=== PATIENT | female | born 1995 | race African-American/Black ===

== ENCOUNTER 2017-04-04 12:22 | Emergency (ER) | payer MEDICAID, SELFPAY | END 2017-04-04 13:13 | disposition home or self-care (01) | DX: H66.003 Acute suppurative otitis media without spontaneous rupture of ear drum, bilateral (principal); Z91.040 Latex allergy status; J45.909 Unspecified asthma, uncomplicated; F17.210 Nicotine dependence, cigarettes, uncomplicated; Z88.2 Allergy status to sulfonamides; Z88.6 Allergy status to analgesic agent | CPT/HCPCS: 87880 ==

== ENCOUNTER 2017-04-22 12:00 | Emergency (ER) | payer MEDICAID, SELFPAY ==
[2017-04-22 12:08] VITALS: BP 154/88; PULSE 89; RESP 22; TEMP 36.8; O2SAT 100; BMI 43.8
--- NOTE | 2017-04-22 12:20 | HMH.EDHA ---
ED Disposition Clinical Impression: Ocular migraine Nearsightedness Qualifiers: Laterality: bilateral Qualified Code(s): H52.13 - Myopia, bilateral Astigmatism of both eyes Qualifiers: Astigmatism type: irregular Qualified Code(s): H52.213 - Irregular astigmatism, bilateral Macular degeneration Qualifiers: Macular degeneration type: unspecified type Eye laterality: unspecified Qualified Code(s): H35.30 - Unspecified macular degeneration Chronic headaches Qualifiers: Headache type: unspecified Intractability: intractable Qualified Code(s): R51 - Headache Disposition: Home, Self-Care Condition on Discharge: Good Instructions: DI for Headache Additional Instructions: Follow-up with Dr. Ciara Kolb at [facility] tomorrow at 10:00a,. If headache is not improved by tomorrow, please return to the Emergency Room after seeing the re etcher. Time of Disposition: 15:02 - Critical Care Critical Care Time: No Attestation: On , the high probability of a clinically significant, sudden or life threatening deterioration of the following system(s) required my full and direct attention, intervention and personal management. The time I documented below is in addition to time spent performing reported procedures but includes the following listed in this critical care notation. Medical Decision Making - Medical Records Medical records reviewed: Yes: I reviewed the patient's medical records. Vital Signs: 04/22/17 12:08 04/22/17 15:20 Temperature 98.2 F 98.6 F Temperature Source Oral Oral Pulse Rate 85 Pulse Rate [Right Brachial] 89 Respiratory Rate 22 14 Blood Pressure 112/78 Blood Pressure [Right Arm] 154/88 Blood Pressure Mean [Right Arm] 110 Blood Pressure Source Automatic Cuff Blood Pressure Source [Right Arm] Automatic Cuff Blood Pressure Position Sitting Blood Pressure Position [Right Arm] Sitting 02 Sat by Pulse Oximetry 100 Oxygen Delivery Method Room Air Room Air - Lab Data Lab results reviewed: Yes: I reviewed the patient's lab results. Orders (Tests/Meds): ED MEDICATIONS Discontinued Medications Generic Name Dose Route Start Last Admin Trade Name Freq PRN Reason Stop Dose Admin Hydromorphone HCl 1 mg 04/22/17 12:20 04/22/17 14:01 Dilaudid 2mg/Ml Syringe IM 04/22/17 12:21 1 mg ONCE ONE Administration Ondansetron HCl 4 mg 04/22/17 12:20 04/22/17 14:01 Zofran 4mg/2ml Vial IM 04/22/17 12:21 4 mg ONCE ONE Administration - CT Data CT Scan: Head Time Received: 14:[address] Reviewed: Yes: I have reviewed the patient's CT results Preliminary Findings: Normal/NAD - Guy Inquiry Pt receiving controlled substance: No - Reevaluation(s) Time: 14:45 Reevaluation #1: Case d/w dr Kolb at [facility], and advised of patient's presentation and findings. willing to see the patient today, but the patient is REFUSING to go to the specialist appointment stating that her has to go to work this afternoon. Dr Kolb agreeable to see the patient tomorrow am,de appointment. Advised the patient that I was unable to check her intraocular pressure as we do not have a functional thermometer in this department, and she will need to be evaluated for glaucoma as soon as possible. Unfortunately, again, the patient refused this opportunity to be seen right away by the interactive media marketing specialist. Headache HPI - General Chief Complaint: Headache Stated Complaint: h/a Time Seen by Provider: 04/22/17 12:10 Mode of Arrival: Ambulatory Limitations: No Limitations Description of Symptoms (Recalled from ER Triage Doc. by RN): HEADACHE FOR FOUR DAYS, STARTED A DULL POUNDING AND HAS SPREAD FROM HEAD TO NECK AND EYEBALL. STATES OF LAST NIGHT, HER LEFT EYE IS HAVING TROUBLE FOCUSING AND BLURRY VISION. DENIES FEVER. STATES SHE HAS TAKEN IBUPROFEN 3-4 TIMES A DAY SINCE THE HEADACHE ONSET WITH NO RELIEF. - History of Present Illness HPI Na
--- NOTE | 2017-04-22 12:23 | ED_ITS ---
ED Disposition Clinical Impression: Ocular migraine Nearsightedness Qualifiers: Laterality: bilateral Qualified Code(s): H52.13 - Myopia, bilateral Astigmatism of both eyes Qualifiers: Astigmatism type: irregular Qualified Code(s): H52.213 - Irregular astigmatism , bilateral Macular degeneration Qualifiers: Macular degeneration type: unspecified type Eye laterality: unspecified Qualified Code(s): H35.30 - Unspecified macular degeneration Chronic headaches Qualifiers: Headache type: unspecified Intractability: intractable Qualified Code(s): R51 - Headache Disposition: Home, Self-Care Condition on Discharge: Good Instructions: DI for Headache Additional Instructions: Follow-up with Dr. Ciara Kolb at [facility] tomorrow at 10:00a, . If headache is not improved by tomorrow, please return to the Emergency Room after seeing the timber framer helper. Time of Disposition: 15:02 - Critical Care Critical Care Time: No Attestation: On , the high probability of a clinically significant, sudden or life threatening deterioration of the following system(s) required my full and direct attention, intervention and personal management. The time I documented below is in addition to time spent performing reported procedures but includes the following listed in this critical care notation. Medical Decision Making - Medical Records Medical records reviewed: Yes: I reviewed the patient's medical records. Vital Signs: 04/22/17 12:08 04/22/17 15:20 Temperature 98.2 F 98.6 F Temperature Source Oral Oral Pulse Rate 85 Pulse Rate [Right Brachial] 89 Respiratory Rate 22 14 Blood Pressure 112/78 Blood Pressure [Right Arm] 154/88 Blood Pressure Mean [Right Arm] 110 Blood Pressure Source Automatic Cuff Blood Pressure Source [Right Arm] Automatic Cuff Blood Pressure Position Sitting Blood Pressure Position [Right Arm] Sitting 02 Sat by Pulse Oximetry 100 Oxygen Delivery Method Room Air Room Air - Lab Data Lab results reviewed: Yes: I reviewed the patient's lab results. Orders (Tests/Meds): ED MEDICATIONS Discontinued Medications Generic Name Dose Route Start Last Admin Trade Name Freq PRN Reason Stop Dose Admin Hydromorphone HCl 1 mg 04/22/17 12:20 04/22/17 14:01 Dilaudid 2mg/Ml Syringe IM 04/22/17 12:21 1 mg ONCE ONE Administration Ondansetron HCl 4 mg 04/22/17 12:20 04/22/17 14:01 Zofran 4mg/2ml Vial IM 04/22/17 12:21 4 mg ONCE ONE Administration - CT Data CT Scan: Head Time Received: 14:[address] Reviewed: Yes: I have reviewed the patient's CT results Preliminary Findings: Normal/NAD - Guy Inquiry Pt receiving controlled substance: No - Reevaluation(s) Time: 14:45 Reevaluation #1: Case d/w dr Kolb at [facility], and advised of patient's presentation and findings. willing to see the patient today, but the patient is REFUSING to go to the specialist appointment stating that her has to go to work this afternoon. Dr Kolb agreeable to see the patient tomorrow am,de appointment. Advised the patient that I was unable to check her intraocular pressure as we do not have a functional thermometer in this department, and she will need to be evaluated for glaucoma as soon as possible. Unfortunately, again, the
--- NOTE | 2017-04-22 12:49 | CT_ITS ---
CT head/brain wo con HISTORY: ITS.REASON: worst headache ever, left eye blurred vision ORDERING PHYSICIAN: Tank Guerrero MD PATIENT AGE: 21 years COMPARISON: None TECHNIQUE: Axial images obtained without contrast. Brain and bone windows reviewed. FINDINGS: No midline shift, mass effect, intracranial hemorrhage, hydrocephalus, or extra-axial fluid collection is evident. The calvarium has an unremarkable appearance. No mastoid effusion. No sinus air-fluid levels.. There is prominent adenoid hypertrophy IMPRESSION: 1. No acute intracranial finding. 2. Enlarged adenoids
[2017-04-22 15:20] VITALS: BP 112/78; PULSE 85; RESP 14; TEMP 37; O2SAT 98
== END 2017-04-22 15:24 | disposition home or self-care (01) ==
PROVIDERS: Emergency Provider Emergency Medicine
DX: G43.B0 Ophthalmoplegic migraine, not intractable (principal); H52.13 Myopia, bilateral; H52.203 Unspecified astigmatism, bilateral; H35.30 Unspecified macular degeneration; F17.210 Nicotine dependence, cigarettes, uncomplicated
CPT/HCPCS: 70450; 96372; 99282; J2405

== ENCOUNTER 2017-04-23 10:52 | Emergency (ER) | payer MEDICAID, SELFPAY ==
[2017-04-23 11:00] VITALS: BP 145/93; PULSE 86; RESP 18; TEMP 36.9; O2SAT 98; BMI 43.8
--- NOTE | 2017-04-23 11:22 | PC.NURSE ---
VISUAL ACUITY WAS ASSESSED AND PT'S VISION IN EITHER EYE WAS 20/70 WITH CORRECTIVE LENSES ON. PT ADVISES THAT SHE HAS HAD VISION PROBLEMS SINCE SHE WAS 3 YEARS OLD AND HAS ALWAYS TESTED 20/70.
--- NOTE | 2017-04-23 12:01 | HMH.EDHA ---
ED Disposition Clinical Impression: Migraine, Ocular migraine Disposition: Home, Self-Care Condition on Discharge: Good Instructions: Migraine -- Adult Additional Instructions: See your eye doctor and family doctor for follow up next week; see list of local family MD's if you do not have a current one. Recommend Tylenol over the counter, avoid Ibuprofen if sensitive to it. continue to push fluids. - Critical Care Critical Care Time: No Attestation: On 04/23/17, the high probability of a clinically significant, sudden or life threatening deterioration of the following system(s) required my full and direct attention, intervention and personal management. The time I documented below is in addition to time spent performing reported procedures but includes the following listed in this critical care notation. Medical Decision Making - Medical Records Medical records reviewed: Yes: I reviewed the patient's medical records. Vital Signs: 04/23/17 11:00 Temperature 98.5 F Temperature Source Oral Pulse Rate [Left Brachial] 86 Respiratory Rate 18 Blood Pressure [Left Arm] 145/93 Blood Pressure Mean [Left Arm] 110 Blood Pressure Source [Left Arm] Automatic Cuff Blood Pressure Position [Left Arm] Sitting 02 Sat by Pulse Oximetry 98 Oxygen Delivery Method Room Air Orders (Tests/Meds): ED MEDICATIONS Discontinued Medications Generic Name Dose Route Start Last Admin Trade Name Freq PRN Reason Stop Dose Admin Diphenhydramine HCl 25 mg 04/23/17 12:40 04/23/17 12:43 Benadryl 25mg Capsule PO 04/23/17 12:41 25 mg ONCE ONE Administration Methylprednisolone Sodium Succinate 125 mg 04/23/17 11:38 04/23/17 12:18 Solu-Medrol 125mg/2ml Vial IM 04/23/17 11:39 125 mg ONCE ONE Administration Promethazine HCl 25 mg 04/23/17 12:40 04/23/17 12:43 Phenergan 25mg Tablet PO 04/23/17 12:41 25 mg ONCE ONE Administration - Guy Inquiry Pt receiving controlled substance: No Medical Decision Making Narrative: Improved with Solumedrol, but having GI upset; Phenergan and Benadryl PO. 1300: feeling fine; ready for d/c; stable; eating donut and drinking pop. Headache HPI - General Chief Complaint: Headache Stated Complaint: headache Time Seen by Provider: 04/23/17 11:40 Mode of Arrival: Ambulatory Limitations: No Limitations Description of Symptoms (Recalled from ER Triage Doc. by RN): pt c/o fernandez that has worsened since yesterday after being seen in ED for lt eye pain that caused the fernandez - History of Present Illness HPI Narrative: Patient was seen in the emergency department yesterday for left-sided headache. Had some vision changes. The scan was negative, and she was referred to eye doctor, who examined her and stated that she had macular degeneration. 6 that she has had migraine headaches since she was 5 years old. Significant similar headaches to this 1 today, and seen by Dr. Brian in the past for them last year. Has photophobia and nausea. Still has photophobia. No vomiting. No rash. No neck stiffness. No joint pain. Fever. History of PMS migraine and she just started her menses today. History of Crohn's disease, stable she states I took ibuprofen yesterday for my headache, but I am allergic to ibuprofen as it gives me a headache . - Related Data Home Medications Medication Instructions Recorded Confirmed No Known Home Medications [No 04/22/17 04/22/17 Known Home Medications] Allergies Allergy/AdvReac Type Severity Reaction Status Date / Time acetaminophen [ACETAMINOPHEN] Allergy Unknown Verified 04/22/17 12:23 codeine [CODEINE] Allergy Unknown Verified 04/22/17 12:23 latex [LATEX] Allergy Unknown Verified 04/22/17 12:23 NSAIDS (Non-Steroidal Allergy Unknown Verified 04/22/17 12:23 Anti-Inflamma [NSAIDS (NON-STEROIDAL ANTI-INFLAMMA] Sulfa (Sulfonamide Allergy Unknown Verified 04/22/17 12:23 Antibiotics) [SULFA (SULFONAMIDE
--- NOTE | 2017-04-23 12:04 | ED_ITS ---
ED Disposition Clinical Impression: Migraine, Ocular migraine Disposition: Home, Self-Care Condition on Discharge: Good Instructions: Migraine -- Adult Additional Instructions: See your eye doctor and family doctor for follow up next week; see list of local family MD's if you do not have a current one. Recommend Tylenol over the counter, avoid Ibuprofen if sensitive to it. continue to push fluids. - Critical Care Critical Care Time: No Attestation: On 04/23/17, the high probability of a clinically significant, sudden or life threatening deterioration of the following system(s) required my full and direct attention, intervention and personal management. The time I documented below is in addition to time spent performing reported procedures but includes the following listed in this critical care notation. Medical Decision Making - Medical Records Medical records reviewed: Yes: I reviewed the patient's medical records. Vital Signs: 04/23/17 11:00 Temperature 98.5 F Temperature Source Oral Pulse Rate [Left Brachial] 86 Respiratory Rate 18 Blood Pressure [Left Arm] 145/93 Blood Pressure Mean [Left Arm] 110 Blood Pressure Source [Left Arm] Automatic Cuff Blood Pressure Position [Left Arm] Sitting 02 Sat by Pulse Oximetry 98 Oxygen Delivery Method Room Air Orders (Tests/Meds): ED MEDICATIONS Discontinued Medications Generic Name Dose Route Start Last Admin Trade Name Freq PRN Reason Stop Dose Admin Diphenhydramine HCl 25 mg 04/23/17 12:40 04/23/17 12:43 Benadryl 25mg Capsule PO 04/23/17 12:41 25 mg ONCE ONE Administration Methylprednisolone Sodium Succinate 125 mg 04/23/17 11:38 04/23/17 12:18 Solu-Medrol 125mg/2ml Vial IM 04/23/17 11:39 125 mg ONCE ONE Administration Promethazine HCl 25 mg 04/23/17 12:40 04/23/17 12:43 Phenergan 25mg Tablet PO 04/23/17 12:41 25 mg ONCE ONE Administration - Guy Inquiry Pt receiving controlled substance: No Medical Decision Making Narrative: Improved with Solumedrol, but having GI upset; Phenergan and Benadryl PO. 1300: feeling fine; ready for d/c; stable; eating donut and drinking pop. Headache HPI - General Chief Complaint: Headache Stated Complaint: headache Time Seen by Provider: 04/23/17 11:40 Mode of Arrival: Ambulatory Limitations: No Limitations Description of Symptoms (Recalled from ER Triage Doc. by RN): pt c/o fernandez that has worsened since yesterday after being seen in ED for lt eye pain that caused the fernandez - History of Present Illness HPI Narrative: Patient was seen in the emergency department yesterday for left-sided headache. Had some vision changes. The scan was negative, and she was referred to eye doctor, who examined her and stated that she had macular degeneration. 6 that she has had migraine headaches since she was 5 years old. Significant similar headaches to this 1 today, and seen by Dr. Brian in the past for them last year. Has photophobia and nausea. Still has photophobia. No vomiting. No rash. No neck stiffness. No joint pain. Fever. History of PMS migraine and she just started her menses today. History of Crohn's disease, stable she states I took ibuprofen yesterday for my headache, but I am allergic to ibuprofen as it gives me a headache . - Related Data Home Medications Medication I
[2017-04-23 13:15] VITALS: BP 134/81; PULSE 78; RESP 20; TEMP 36.9; O2SAT 100
== END 2017-04-23 13:15 | disposition home or self-care (01) ==
PROVIDERS: Emergency Provider Emergency Medicine
DX: G43.B0 Ophthalmoplegic migraine, not intractable (principal); Z88.6 Allergy status to analgesic agent; Z88.5 Allergy status to narcotic agent; Z88.2 Allergy status to sulfonamides
CPT/HCPCS: 96372; 99281; 99282

== ENCOUNTER 2017-04-25 12:33 | Emergency (ER) | payer MEDICAID, SELFPAY ==
[2017-04-25 12:50] VITALS: BP 154/86; PULSE 95; RESP 18; TEMP 36.8; O2SAT 99; BMI 43.8
--- NOTE | 2017-04-25 13:15 | HMH.EDGENADL ---
ED Disposition Clinical Impression: Sinus headache, Cervical lymphadenopathy Disposition: Home, Self-Care Condition on Discharge: Fair Additional Instructions: ---IMPRESSION The paranasal sinuses are well-developed and clear. No sinusitis evident. No facial bone fracture or findings. Very prominent adenoidal hypertrophy for age,; along with numerous prominent nodes throughout the neck. These findings require follow-up. May reflect reflect prominent reactive nodes but but warrants close follow-up to exclude developing lymphoproliferative abnormality I I discussed the above CT findings with the patient and advised her to follow-up with Dr. Hardwick for biopsies. He verbalized understanding. She is to continue her abx. Referrals: Drake Whitehead MD [Primary Care Provider] - Jhonatan Hardwick MD [Physician] - - Critical Care Critical Care Time: No Attestation: On 04/25/17, the high probability of a clinically significant, sudden or life threatening deterioration of the following system(s) required my full and direct attention, intervention and personal management. The time I documented below is in addition to time spent performing reported procedures but includes the following listed in this critical care notation. Medical Decision Making Vital Signs: 04/25/17 12:50 Temperature 98.3 F Temperature Source Oral Pulse Rate [Right Brachial] 95 H Respiratory Rate 18 Blood Pressure [Right Arm] 154/86 Blood Pressure Mean [Right Arm] 108 Blood Pressure Source [Right Arm] Automatic Cuff Blood Pressure Position [Right Arm] Sitting 02 Sat by Pulse Oximetry 99 Oxygen Delivery Method Room Air - Lab Data Lab Results 04/25/17 13:55: WBC 12.8 H, RBC 5.26, Hgb 11.0 L, Hct 37.3, MCV 70.8 L, MCH 21.0 L, MCHC 29.6 L, RDW 17.4, Plt Count 375, MPV 7.3 L, Neut % (Auto) 53.0, Lymph % (Auto) 40.6, Bertie % (Auto) 4.6, Eos % (Auto) 1.3, Baso % (Auto) 0.5, Neut # (Auto) 6.8, Lymph # (Auto) 5.2 H, Bertie # (Auto) 0.6, Eos # (Auto) 0.2, Baso # (Auto) 0.1 04/25/17 13:55: Sodium 139, Potassium 3.8, Chloride 103, Carbon Dioxide 29, Anion Gap 10.8, BUN 15, Creatinine 0.78, Estimated Creat Clear 110, Estimated GFR 92, Est GFR ( Amer) 112, Glucose 90, Calcium 8.7, Total Bilirubin 0.3, AST 12 L, ALT 17, Alkaline Phosphatase 87, Total Protein 8.0, Albumin 3.5, Globulin 4.5 H, Albumin/Globulin Ratio 0.8 L Result diagrams: 04/25/17 13:55 04/25/17 13:55 - CT Data ED CT Reviewed: Yes: I have reviewed the patient's CT results, I have viewed the radiologist's interpretation - Guy Inquiry Pt receiving controlled substance: No Guy was queried for this patient: No Medical Decision Making Narrative: ---IMPRESSION The paranasal sinuses are well-developed and clear. No sinusitis evident. No facial bone fracture or findings. Very prominent adenoidal hypertrophy for age,; along with numerous prominent nodes throughout the neck. These findings require follow-up. May reflect reflect prominent reactive nodes but but warrants close follow-up to exclude developing lymphoproliferative abnormality I discussed above CT findings with the patient's, General Adult HPI - General Stated complaint: 3rd visit jaw locks - History of Present Illness HPI narrative: This is 21 years old -N[place]alese female with a history of chronic migraines since the age of 5, her normal migraine usually starts on the left shinto associated with photophobia and vomiting. For the past week she has experienced the left facial pain radiating to the left ear and down her neck. The pain radiates to the left paraspinal region. She reports that the pain is worse with the change in barometric pressure and the change of her position from laying down to sitting upright or standing. The left facial pain as sharp in character intermittent throbbing. she has a baseline photophobia that has not changed. She denies having neck sti
--- NOTE | 2017-04-25 13:18 | ED_ITS ---
ED Disposition Clinical Impression: Sinus headache, Cervical lymphadenopathy Disposition: Home, Self-Care Condition on Discharge: Fair Additional Instructions: ---IMPRESSION The paranasal sinuses are well-developed and clear. No sinusitis evident. No facial bone fracture or findings. Very prominent adenoidal hypertrophy for age,; along with numerous prominent nodes throughout the neck. These findings require follow-up. May reflect reflect prominent reactive nodes but but warrants close follow-up to exclude developing lymphoproliferative abnormality I I discussed the above CT findings with the patient and advised her to follow- up with Dr. Hardwick for biopsies. He verbalized understanding. She is to continue her abx. Referrals: Drake Whitehead MD [Primary Care Provider] - Jhonatan Hardwick MD [Physician] - - Critical Care Critical Care Time: No Attestation: On 04/25/17, the high probability of a clinically significant, sudden or life threatening deterioration of the following system(s) required my full and direct attention, intervention and personal management. The time I documented below is in addition to time spent performing reported procedures but includes the following listed in this critical care notation. Medical Decision Making Vital Signs: 04/25/17 12:50 Temperature 98.3 F Temperature Source Oral Pulse Rate [Right Brachial] 95 H Respiratory Rate 18 Blood Pressure [Right Arm] 154/86 Blood Pressure Mean [Right Arm] 108 Blood Pressure Source [Right Arm] Automatic Cuff Blood Pressure Position [Right Arm] Sitting 02 Sat by Pulse Oximetry 99 Oxygen Delivery Method Room Air - Lab Data Lab Results 04/25/17 13:55: WBC 12.8 H, RBC 5.26, Hgb 11.0 L, Hct 37.3, MCV 70.8 L, MCH 21.0 L, MCHC 29.6 L, RDW 17.4, Plt Count 375, MPV 7.3 L, Neut % (Auto) 53.0, Lymph % (Auto) 40.6, [place] % (Auto) 4.6, Eos % (Auto) 1.3, Baso % (Auto) 0.5, Neut # (Auto) 6.8, Lymph # (Auto) 5.2 H, [place] # (Auto) 0.6, Eos # (Auto) 0.2, Baso # (Auto) 0.1 04/25/17 13:55: Sodium 139, Potassium 3.8, Chloride 103, Carbon Dioxide 29, Anion Gap 10.8, BUN 15, Creatinine 0.78, Estimated Creat Clear 110, Estimated GFR 92, Est GFR ( Amer) 112, Glucose 90, Calcium 8.7, Total Bilirubin 0.3 , AST 12 L, ALT 17, Alkaline Phosphatase 87, Total Protein 8.0, Albumin 3.5, Globulin 4.5 H, Albumin/Globulin Ratio 0.8 L Result diagrams: 04/25/17 13:55 04/25/17 13:55 - CT Data ED CT Reviewed: Yes: I have reviewed the patient's CT results, I have viewed the radiologist's interpretation - Guy Inquiry Pt receiving controlled substance: No Guy was queried for this patient: No Medical Decision Making Narrative: ---IMPRESSION The paranasal sinuses are well-developed and clear. No sinusitis evident. No facial bone fracture or findings. Very prominent adenoidal hypertrophy for age,; along with numerous prominent nodes throughout the neck. These findings require follow-up. May reflect reflect prominent reactive nodes but but warrants close follow-up to exclude developing lymphoproliferative abnormality I discussed above CT findings with the patient's, General Adult HPI - General Stated complaint: 3rd visit jaw locks - History of Present Illness HPI narrative: This is 21 years old -[place] female with a history of chronic migraines since the age of 5, her normal migraine usually st
--- NOTE | 2017-04-25 13:23 | CT_ITS ---
CT facial bones wo con Ordering Physician: Kulwinder Sams Patient Age: 21 years: Female HISTORY: ITS.REASON: left sided hedache TECHNIQUE: Helical CT scanning performed the facial bones with axial coronal and sagittal reconstructions on CT workstation. COMPARISON :No previous facial bone studies but there is a CT head from 04/22/2017 FINDINGS The maxillary sinuses. Well-developed. Clear with no significant mucosal thickening. The ostiomeatal complex and outflow pathways are patent bilaterally. Ethmoid sinuses. Well-developed and clear. Sphenoid sinus. Clear unremarkable.. Only small hypoplastic frontal sinuses barely evident. Clear. Orbits unremarkable no retrobulbar pathology. . Mild/moderate engorgement right nasal turbinates more so than left. -- Large prominent adenoidal tissue. Prominent adenoidal hypertrophy.. Unusually prominent even for a younger 21-year-old patient. Although more typical younger patients this can walk eustachian tubes and yield additional symptoms. Some advocate trial antibiotics in this setting The middle ear remains well aerated and clear-unremarkable. Mastoid air cells IACs external canal unremarkable There are numerous moderately enlarged nodes throughout neck bilaterally particularly evident at the right jugulodigastric region more so than left on this CT facial bones study.. One of the larger malik complexes here at right jugulodigastric region, likely reflects confluence of nodes & spans 2.8 cm in length x 1.2 cm transverse. Enlarged just anterior to this measuring 2.5 x 13 mm & seen on coronal image 43 as well the Moderate enlarged nodes overlying right and left submandibular glands bilaterally.: Note 17 x 8 mm node overlying left submandibular gland. With 13 x 10 mm overlying right submandibular gland ankle mandible on right. 'It also mildly enlarged submental nodes noted. Largest measuring 13 mm x 9 mm.. . More inferiorly below the hyoid, at the left anterior cervical chain is a elongated 2.6 cm x 12 mm wide node seen on coronal image 50, 49. Consider ENT follow-up.. Also suggested evaluating axilla & groin for evidence of enlarged nodes elsewhere. The spleen appeared normal size on February 2017 CT a chest tube which included upper abdomen. No significant mediastinal nor hilar nor adenopathy on that prior CT chest. A postcontrast CT neck at some point may be of benefit to further evaluate the prominent nodes throughout the neck as well if they should persist or progress. ---IMPRESSION The paranasal sinuses are well-developed and clear. No sinusitis evident. No facial bone fracture or findings. Very prominent adenoidal hypertrophy for age,; along with numerous prominent nodes throughout the neck. These findings require follow-up. May reflect reflect prominent reactive nodes but but warrants close follow-up to exclude developing lymphoproliferative abnormality .
--- NOTE | 2017-04-25 13:23 | CT_ITS ---
CT head/brain wo con Ordering Physician: Kulwinder Sams Patient Age: 21 years: Female HISTORY: ITS.REASON: left sided hedache TECHNIQUE: Standard axial CT scanning head. Brain and bone windows performed and reviewed. COMPARISON is made to CT head 04/22/2017 FINDINGS No acute intracranial findings. No hemorrhage. No mass. No subdural collection. The ventricles and basal cisterns appear within normal limits and stable. Posterior fossa unremarkable. No extra-axial collection. A bone windows demonstrate the skull to be intact. Dural calcifications at convexity again noted. The visualized portions of the paranasal sinuses are clear on this study. Mastoid air cells, middle ear and IACs unremarkable. The prominent adenoidal hypertrophy again noted IMPRESSION: No acute intracranial findings. Brain within normal limits No change since CT head, 04/22/2017.
[2017-04-25 14:06] LABS: Basophils # 0.1 K/mm3 (0-0.2); Basophils % 0.5 % (0.1-2.0); Eosinophils # 0.2 K/mm3 (0.0-0.4); Eosinophils % 1.3 % (0.1-12.0); Hematocrit 37.3 % (37.0-47.0); Lymphocytes # 5.2 K/mm3 (0.7-4.5); Lymphocytes % 40.6 K/mm3 (10-50); Mean Corpuscular HGB Conc 29.6 g/dL (31.8-35.4); Mean Corpuscular Volume 70.8 fl (81-99); Mean Platelet Volume 7.3 fl (7.4-10.4); Monocytes # 0.6 K/mm3 (0.1-1.0); Monocytes % 4.6 % (1.7-9.3); Neutrophils # 6.8 K/mm3 (1.8-7.8); Platelet Count 375 K/mm3 (142-424); Red Blood Count 5.26 M/mm3 (4.20-5.40); Red Cell Distribution Width 17.4 % (11.5-17.5); White Blood Count 12.8 K/mm3 (4.8-10.8)
[2017-04-25 14:22] LABS: Alanine Aminotransferase 17 U/L (12-78); Albumin Level 3.5 gm/dL (3.4-5.0); Albumin/Globulin Ratio 0.8 (1.1-1.8); Alkaline Phosphatase 87 U/L (46-116); Anion Gap 10.8 mEq/L (5-15); Aspartate Amino Transferase 12 U/L (15-37); Bilirubin,Total 0.3 mg/dL (0.2-1.0); Blood Urea Nitrogen 15 mg/dL (7-18); Calcium 8.7 mg/dL (8.5-10.1); Carbon Dioxide 29 mmol/L (21.0-32.0); Chloride 103 mmol/L (98-107); Creatinine Clearance Estimated 110 mL/min (0-300); Creatinine,Serum 0.78 mg/dL (0.55-1.02); Estimated Glomerular Filt Rate 92 ml/min (>60); GFR (African American) 112 ML/MIN (>60); Globulin 4.5 gm/dl (1.3-3.2); Glucose 90 mg/dL (74-106); Potassium 3.8 mmoL/L (3.5-5.1); Sodium 139 mmol/L (136-145)
[2017-04-25 16:14] VITALS: BP 150/80; PULSE 75; RESP 20; O2SAT 99
== END 2017-04-25 16:17 | disposition home or self-care (01) ==
LOC: UTC 12:38 → ER 12:48
PROVIDERS: Emergency Medicine; Emergency Provider Nurse Practitioner Family; PCP Internal Medicine Adolescent Medicine
DX: G44.89 Other headache syndrome (principal); R59.0 Localized enlarged lymph nodes; Z88.6 Allergy status to analgesic agent; Z88.2 Allergy status to sulfonamides; Z91.040 Latex allergy status; F17.290 Nicotine dependence, other tobacco product, uncomplicated
CPT/HCPCS: 36415; 70450; 70486; 80053; 85025; 99291

== ENCOUNTER → 2017-04-29 08:24 | Outpatient (POV) | payer MEDICAID, SELFPAY | PROVIDERS: Visit Provider Dentist | DX: Z00.00 Encounter for general adult medical examination without abnormal findings (principal) ==

== ENCOUNTER 2017-05-02 15:45 | Emergency (ER) | payer MEDICAID, SELFPAY ==
[2017-05-02 16:17] VITALS: BP 146/104; PULSE 104; RESP 20; TEMP 36.9; O2SAT 98; BMI 53.2
--- NOTE | 2017-05-02 16:43 | HMH.EDUTC ---
[facility] [place] Clinical Impression: Nausea Disposition: Home, Self-Care Condition on Discharge: Good Instructions: DI for Nausea -- Adult, DI for Constipation, Constipation Additional Instructions: Follow up with Dr Whitehead for further Treatment and evaluation REturn if needed Over the counter Enema and glycerin suppository will help with constipation Take zofran as prescribed Drink plenty of fluids, water, gatoraid etc Prescriptions: Ondansetron [Zofran 4mg ODT] 4 mg PO Q8H #20 tab.rapdis Referrals: Drake Whitehead MD [Primary Care Provider] - Time of Disposition: 17:06 Medical Decision Making - Medical Records Medical records reviewed: Yes: I reviewed the patient's medical records. Vital Signs: 05/02/17 16:17 Temperature 98.4 F Temperature Source Temporal Artery Scan Pulse Rate [Left Brachial] 104 H Respiratory Rate 20 Blood Pressure [Left Arm] 146/104 Blood Pressure Mean [Left Arm] 118 Blood Pressure Source [Left Arm] Automatic Cuff Blood Pressure Position [Left Arm] Sitting 02 Sat by Pulse Oximetry 98 Oxygen Delivery Method Room Air Orders (Tests/Meds): ED MEDICATIONS Discontinued Medications Generic Name Dose Route Start Last Admin Trade Name Freq PRN Reason Stop Dose Admin Ondansetron HCl 4 mg 05/02/17 16:56 Zofran 4mg Odt SL 05/02/17 16:57 ONCE ONE - Guy Inquiry Pt receiving controlled substance: No Guy was queried for this patient: No [facility] [place] - General Stated complaint: vomiting Mode of Arrival: Ambulatory Source of Information: Patient Limitations: No Limitations Description of Symptoms (Recalled from Triage Doc. by RN): C/O vomiting and constipation since Wed HEENT Symptoms (Recalled from RN notes): No Resp Symptoms (Recalled from RN notes): No Skin Symptoms (Recalled from RN notes): No MS Symptoms (Recalled from RN notes): No Functional Status (Recalled from RN notes): n/a - History of Present Illness Provider Complaint: Patient state that she had dental work done last , state that she has been having eppisodes of vomiting since Wed State that she hasn't been able to keep much down State that has been on pain medication state that she has been constipated - Related Data Previous Rx's Medication Instructions Recorded Ondansetron [Zofran 4mg ODT] 4 mg PO Q8H #20 tab.rapdis 05/02/17 Allergies Allergy/AdvReac Type Severity Reaction Status Date / Time acetaminophen [ACETAMINOPHEN] Allergy Unknown Verified 04/30/17 10:50 codeine [CODEINE] Allergy Unknown Verified 04/30/17 10:50 latex [LATEX] Allergy Unknown Verified 04/30/17 10:50 NSAIDS (Non-Steroidal Allergy Unknown Verified 04/30/17 10:50 Anti-Inflamma [NSAIDS (NON-STEROIDAL ANTI-INFLAMMA] Sulfa (Sulfonamide Allergy Unknown Verified 04/30/17 10:50 Antibiotics) [SULFA (SULFONAMIDE ANTIBIOTICS)] - Worker's Comp Is this a Worker's Comp case?: No H History I have reviewed the patient's past medical history: Yes Medical History: Denies:: Cancer, Diabetes Mellitus Type 1, Diabetes Mellitus Type 2, MRSA Amputation: No Fractures: No - *Social History Smoking Status: Never smoker Alcohol Intake: never - Psychiatric History Expresses thoughts of harming self/others: None Suicide Plan Description: No Plan ROS Obtained: Yes All systems reviewed & no additional complaints Physical Exam - General General appearance: alert, in no apparent distress - ENT ENT exam: Present: normal exam - Respiratory Respiratory exam: Present: normal lung sounds bilaterally. Absent: respiratory distress - Cardiovascular Cardiovascular exam: Present: regular rate, normal rhythm. Absent: JVD - Abdominal Exam Abdominal exam: Present: soft, normal bowel sounds. Absent: distention, tenderness, guarding - Neurological Exam Neurological exam: Present: alert, oriented X3 - Other Other exam information: Patient state that
--- NOTE | 2017-05-02 16:54 | ED_ITS ---
[facility] [place] [facility] [place] Clinical Impression: Nausea Disposition: Home, Self-Care Condition on Discharge: Good Instructions: DI for Nausea -- Adult, DI for Constipation, Constipation Additional Instructions: Follow up with Dr Whitehead for further Treatment and evaluation REturn if needed Over the counter Enema and glycerin suppository will help with constipation Take zofran as prescribed Drink plenty of fluids, water, gatoraid etc Prescriptions: Ondansetron [Zofran 4mg ODT] 4 mg PO Q8H #20 tab.rapdis Referrals: Drake Whitehead MD [Primary Care Provider] - Time of Disposition: 17:06 Medical Decision Making - Medical Records Medical records reviewed: Yes: I reviewed the patient's medical records. Vital Signs: 05/02/17 16:17 Temperature 98.4 F Temperature Source Temporal Artery Scan Pulse Rate [Left Brachial] 104 H Respiratory Rate 20 Blood Pressure [Left Arm] 146/104 Blood Pressure Mean [Left Arm] 118 Blood Pressure Source [Left Arm] Automatic Cuff Blood Pressure Position [Left Arm] Sitting 02 Sat by Pulse Oximetry 98 Oxygen Delivery Method Room Air Orders (Tests/Meds): ED MEDICATIONS Discontinued Medications Generic Name Dose Route Start Last Admin Trade Name Freq PRN Reason Stop Dose Admin Ondansetron HCl 4 mg 05/02/17 16:56 Zofran 4mg Odt SL 05/02/17 16:57 ONCE ONE - Guy Inquiry Pt receiving controlled substance: No Guy was queried for this patient: No [facility] [place] [facility] [place] - General Stated complaint: vomiting Mode of Arrival: Ambulatory Source of Information: Patient Limitations: No Limitations Description of Symptoms (Recalled from Triage Doc. by RN): C/O vomiting and constipation since Wed HEENT Symptoms (Recalled from RN notes): No Resp Symptoms (Recalled from RN notes): No Skin Symptoms (Recalled from RN notes): No MS Symptoms (Recalled from RN notes): No Functional Status (Recalled from RN notes): n/a - History of Present Illness Provider Complaint: Patient state that she had dental work done last , state that she has been having eppisodes of vomiting since Wed State that she hasn't been able to keep much down State that has been on pain medication state that she has been constipated - Related Data Previous Rx's Medication Instructions Recorded Ondansetron [Zofran 4mg ODT] 4 mg PO Q8H #20 tab.rapdis 05/02/17 Allergies Allergy/AdvReac Type Severity Reaction Status Date / Time acetaminophen [ACETAMINOPHEN] Allergy Unknown Verified 04/30/17 10:50 codeine [CODEINE] Allergy Unknown Verified 04/30/17 10:50 latex [LATEX] Allergy Unknown Verified 04/30/17 10:50 NSAIDS (Non-Steroidal Allergy Unknown Verified 04/30/17 10:50 Anti-Inflamma [NSAIDS (NON-STEROIDAL ANTI-INFLAMMA] Sulfa (Sulfonamide Allergy Unknown Verified 04/30/17 10:50 Antibiotics) [SULFA (SULFONAMIDE ANTIBIOTICS)] - Worker's Comp Is this a Worker's Comp case?: No [facility] History I have reviewed the patient's past medical history: Yes Medical History: Denies:: Cancer, Diabetes Mellitus Type 1, Diabetes Mellitus Type 2, MRSA Amputation: No Fractures: No - *Social History Smoking Status: Never smoker Alcohol Intake: never
[2017-05-02 17:09] VITALS: BP 146/104; PULSE 104; RESP 20; TEMP 36.9; O2SAT 98
== END 2017-05-02 17:10 | disposition home or self-care (01) ==
PROVIDERS: Emergency Provider Nurse Practitioner; PCP Internal Medicine Adolescent Medicine
DX: R11.0 Nausea (principal); K59.03 Drug induced constipation; Z88.6 Allergy status to analgesic agent; Z91.040 Latex allergy status; Z88.2 Allergy status to sulfonamides
CPT/HCPCS: 99202

== ENCOUNTER → 2017-06-03 08:16 | Outpatient (CLI) | payer MEDICAID, SELFPAY ==
[2017-06-03 09:04] LABS: Alanine Aminotransferase 31 U/L (12-78); Albumin Level 3.4 gm/dL (3.4-5.0); Albumin/Globulin Ratio 0.6 (1.1-1.8); Alkaline Phosphatase 100 U/L (46-116); Anion Gap 9.9 mEq/L (5-15); Aspartate Amino Transferase 15 U/L (15-37); Bilirubin,Total 0.2 mg/dL (0.2-1.0); Blood Urea Nitrogen 10 mg/dL (7-18); Calcium 8.4 mg/dL (8.5-10.1); Carbon Dioxide 28 mmol/L (21.0-32.0); Chloride 104 mmol/L (98-107); Creatinine,Serum 0.73 mg/dL (0.55-1.02); Estimated Glomerular Filt Rate 100 ml/min (>60); GFR (African American) 121 ML/MIN (>60); Globulin 5.3 gm/dl (1.3-3.2); Glucose 116 mg/dL (74-106); Potassium 3.9 mmoL/L (3.5-5.1); Sodium 138 mmol/L (136-145); Thyroid Stimulating Hormone 2.09 uIU/ml (0.358-3.740); Total Protein,Serum 8.7 gm/dL (6.4-8.2)
[2017-06-03 09:14] LABS: Basophils % 0.3 % (0.1-2.0); Eosinophils # 0.1 K/mm3 (0.0-0.4); Eosinophils % 1.4 % (0.1-12.0); Hematocrit 34.8 % (37.0-47.0); Hemoglobin 10.3 g/dL (12.2-16.2); Lymphocytes # 2.9 K/mm3 (0.7-4.5); Lymphocytes % 33.6 K/mm3 (10-50); Mean Corpuscular HGB Conc 29.5 g/dL (31.8-35.4); Mean Corpuscular Hemoglobin 20.7 pg (27.0-31.2); Mean Corpuscular Volume 70.3 fl (81-99); Mean Platelet Volume 7.8 fl (7.4-10.4); Monocytes # 0.4 K/mm3 (0.1-1.0); Monocytes % 5.1 % (1.7-9.3); Neutrophils # 5.2 K/mm3 (1.8-7.8); Neutrophils % 59.6 % (37.0-80.0); Platelet Count 327 K/mm3 (142-424); Red Blood Count 4.95 M/mm3 (4.20-5.40); Red Cell Distribution Width 16.6 % (11.5-17.5); White Blood Count 8.7 K/mm3 (4.8-10.8)
== END ==
PROVIDERS: Visit Provider Internal Medicine Adolescent Medicine
DX: K62.5 Hemorrhage of anus and rectum (principal); R10.9 Unspecified abdominal pain
CPT/HCPCS: 36415; 80053; 84443; 85025

== ENCOUNTER → 2017-09-27 10:01 | Outpatient (CLI) | payer MEDICAID, SELFPAY ==
[2017-09-27 10:13] LABS: Basophils % 0.3 % (0.1-2.0); Eosinophils # 0.2 K/mm3 (0.0-0.4); Eosinophils % 2.1 % (0.1-12.0); Hematocrit 40.7 % (37.0-47.0); Hemoglobin 11.3 g/dL (12.2-16.2); Lymphocytes # 2.7 K/mm3 (0.7-4.5); Lymphocytes % 25.3 K/mm3 (10-50); Mean Corpuscular HGB Conc 27.9 g/dL (31.8-35.4); Mean Corpuscular Hemoglobin 19.9 pg (27.0-31.2); Mean Corpuscular Volume 71.5 fl (81-99); Mean Platelet Volume 8.7 fl (7.4-10.4); Monocytes # 0.4 K/mm3 (0.1-1.0); Monocytes % 3.7 % (1.7-9.3); Neutrophils # 7.2 K/mm3 (1.8-7.8); Neutrophils % 68.6 % (37.0-80.0); Platelet Count 315 K/mm3 (142-424); Red Blood Count 5.69 M/mm3 (4.20-5.40); Red Cell Distribution Width 18.5 % (11.5-17.5); White Blood Count 10.5 K/mm3 (4.8-10.8)
[2017-09-27 11:27] LABS: HCG Qualitative, Serum Negative (Negative)
== END ==
PROVIDERS: Visit Provider Obstetrics & Gynecology
DX: Z01.818 Encounter for other preprocedural examination (principal); N92.0 Excessive and frequent menstruation with regular cycle; N93.8 Other specified abnormal uterine and vaginal bleeding; N85.2 Hypertrophy of uterus; R10.2 Pelvic and perineal pain
CPT/HCPCS: 36415; 84703; 85025